=== PATIENT | female | born 1995 | race Caucasian/White ===

== ENCOUNTER 2016-12-07 01:56 | Emergency (ER) | payer BC, OTHER ==
--- NOTE | 2016-12-07 02:10 | Emergency Department Record ---
History of Present Illness - General Chief complaint: Rash Stated complaint: POISON CANDIDA Time Seen by Provider: 12/07/16 02:00 Source: Patient - History of Present Illness Initial comments: The patient states she thinks she has poison candida of [place] genitals [place]. She states her perineum did not touch any folage, and she did not wipe herself at the time. She had a baby last March and is monogamous, not concerned with STD's, denies vaginal discharge. Her partner did give her oral sex, however, and he has been treated for poison candida on his face and nose. She also has a painful hemorrhoid and has not had a BM for 9-10 days. Her normal BM frequency is Q 3 days. MD complaint: Rash, Other (homorrhoid.) - Related Data Previous Rx's Medication Instructions Recorded Hydrocortisone [Anusol-Hc] 1 apply RC TID #1 tube 12/07/16 Allergies Allergy/AdvReac Type Severity Reaction Status Date / Time codeine Allergy ANAPHYLAXIS Unverified 12/01/16 16:56 Review of Systems Reviewed: No additional complaints except as noted below Constitutional: Reports: As per HPI. Denies: Chills, Fever, Malaise, Night sweats, Weakness, Weight change Eyes: Reports: As per HPI. Denies: Eye discharge, Eye pain, Photophobia, Vision change ENT: Reports: As per HPI. Denies: Congestion, Dental pain, Ear pain, Epistaxis , Hearing loss, Throat pain Respiratory: Reports: As per HPI. Denies: Cough, Dyspnea, Hemoptysis, Stridor, Wheezes Cardiovascular: Reports: As per HPI. Denies: Arrhythmia, Chest pain, Dyspnea on exertion, Edema, Murmurs, Orthopnea, Palpitations, Paroxysmal nocturnal dyspnea, Rheumatic Fever, Syncope Endocrine: Reports: As per HPI. Denies: Fatigue, Heat or cold intolerance, Polydipsia, Polyuria Gastrointestinal: Reports: As per HPI. Denies: Abdominal pain, Constipation, Diarrhea, Hematemesis, Hematochezia, Melena, Nausea, Vomiting Genitourinary: Reports: As per HPI. Denies: Abnormal menses, Discharge, Dyspareunia, Dysuria, Frequency, Hematuria, Incontinence, Retention, Urgency Musculoskeletal: Reports: As per HPI. Denies: Arthralgia, Back pain, Gout, Joint swelling, Myalgia, Neck pain Skin: Reports: As per HPI. Denies: Bruising, Change in color, Change in hair/ nails, Lesions, Pruritus, Rash Neurological: Reports: As per HPI. Denies: Abnormal gait, Confusion, Headache, Numbness, Paresthesias, Seizure, Tingling, Tremors, Vertigo, Weakness Psychiatric: Reports: As per HPI. Denies: Anxiety, Auditory hallucinations, Depression, Homicidal thoughts, Suicidal thoughts, Visual hallucinations Hematological/Lymphatic: Reports: As per HPI. Denies: Anemia, Blood Clots, Easy bleeding, Easy bruising, Swollen glands Past Medical History - SOCIAL HISTORY Smoking Status: Never smoker Drug Use: None - RESPIRATORY Hx Respiratory Disorders: No - CARDIOVASCULAR Hx Cardio Disorders: No - NEURO Hx Neuro Disorders: No - GI Hx GI Disorders: No - Hx Genitourinary Disorders: No - ENDOCRINE Hx Endocrine Disorders: No - MUSCULOSKELETAL Hx Musculoskeletal Disorders: No - PSYCH Hx Psych Problems: No - HEMATOLOGY/ONCOLOGY Hx Hematology/Oncology Disorders: No Physical Exam - General General Appearance: Alert, Oriented x3, Cooperative, No acute distress - Head Head exam: Normal inspection - Eye Eye exam: Normal appearance, PERRL Pupils: Normal accommodation - ENT ENT exam: Normal exam, Mucous membranes moist, Normal external ear exam, Normal orophraynx, TM's normal bilaterally Ear exam: Normal external inspection. negative: External canal tenderness Nasal Exam: Normal inspection. negative: Discharge, Sinus tenderness Mouth exam: Normal external inspection, Tongue normal Teeth exam: Normal inspection. negative: Dental caries Throat exam: Normal inspection. negative: Tonsillar erythema, Tonsillar exudate - Neck Neck exam: Normal inspection, Full ROM. negative: Tenderness - Respiratory Respiratory exam: Normal lung sounds bilaterally. negative: Respiratory distress - Cardiovascular Cardiovascular Exam: Regular rate, Normal rhythm, Normal heart sounds - GI/Abdominal GI/Abdominal exam: Soft, Normal bowel sounds. negative: Tenderness - Rectal Rectal exam: Deferred, Hemorrhoids (tender external hemorrhoid perirectal area) - exam: Other (inspection of labia minora reveals numerous 1mm tiny punctate pustules which easily rupture when culture taken; no clear vessicles present. Culture sent for herpes.) - Extremities Extremities exam: Normal inspection, Full ROM, Normal capillary refill. negative: Tenderness - Back Back exam: Reports: Normal inspection, Full ROM. Denies: Muscle spasm, Rash noted, Tenderness - Neurological Neurological exam: Alert, Normal gait, Oriented X3, Reflexes normal - Psychiatric Psychiatric exam: Normal affect, Normal mood - Skin Skin exam: Dry, Intact, Normal color, Warm Medical Decision Making - Management Options MDM Management: No Additional Work-up Planned Disposition Disposition: Discharge Clinical Impression: Lesion of genital area, External hemorrhoid Constipation Qualifiers: Constipation type: unspecified constipation type Qualified Code(s): K59.00 - Constipation, unspecified Disposition: Home, Self-Care Condition: (1) Good Instructions: Hemorrhoids (ED), Genital Herpes Simplex (ED), Constipation (ED) Additional Instructions: Anusol HC for external hemorrhoid as directed. Magnesium citrate bottle for constipation: mix half a bottle with gatoraide and drink. High fiber diet. Warm soaks to hemorrhoid for comfort if helpful. IF no BM in 6 hours, drink second half of bottle. Hydrocortisone cream to lesions for comfort. Benadryl 25-50 mg every 6 hours as needed for itching/poison candida symptoms. Prescriptions: Hydrocortisone [Anusol-Hc] 1 apply RC TID #1 tube Forms: Patient Portal Access Quality - Quality Measures Quality Measures: N/A - Blood Pressure Screening Systolic Measurement: ~ Screening for High Blood Pressure: < Normal BP, F/U Not Required > [G8783] Normal BP Follow-up Interventions: No follow-up required
[2016-12-07 02:20] LABS: URINE APPEARANCE CLEAR; URINE BILIRUBIN NEGATIVE (NEGATIVE); URINE BLOOD SMALL (NEGATIVE); URINE COLOR YELLOW; URINE GLUCOSE (UA) NEGATIVE (NEGATIVE); URINE KETONE NEGATIVE (NEGATIVE); URINE LEUKOCYTE ESTERASE TRACE (NEGATIVE); URINE NITRITE NEGATIVE (NEGATIVE); URINE PROTEIN NEGATIVE (NEGATIVE); URINE UROBILINOGEN 0.2 E.U./dL (0.20 - 1.00)
[2016-12-07 02:24] LABS: HCG,QUALITATIVE URINE NEGATIVE (NEGATIVE)
[2016-12-07 02:28] LABS: URINE BACTERIA NONE SEEN; URINE EPITHELIAL CELLS 0 - 2 (FEW); URINE WBC 0 - 2 (0-2/hpf)
[2016-12-07 19:38] LABS: SPECIMEN TYPE Not specified
== END 2016-12-07 02:57 | disposition home or self-care (01) ==
LOC: ER 01:56
DX: N90.89 Other specified noninflammatory disorders of vulva and perineum (principal); K59.00 Constipation, unspecified; K64.4 Residual hemorrhoidal skin tags
CPT/HCPCS: 81001; 81025; 99283